=== PATIENT | female | born 1995 | race Caucasian/White ===

== ENCOUNTER 2016-12-19 18:20 | Emergency (ER) | payer OTHER ==
--- NOTE | 2016-12-19 19:27 | RADIOLOGY REPORT ---
HISTORY: Left ankle injury. COMPARISON: None. FINDINGS: Three views of the ankle obtained. There is no acute fracture. There is no lytic or sclerotic lesion. The ankle mortise is intact. Th ere is no soft tissue swelling. No significant degenerative changes are noted. IMPRESSION: No evidence of left ankle fracture or malalignment. Final Electronic Signature: This report was electronically signed by Karl Peck MD on 7 7:25 PM. [email or web address] /
--- NOTE | 2016-12-19 19:55 | ER PHYSICIAN DOCUMENTATION ---
Physician Documentation [facility] Name:Dorcas Duque Age:21 yrs Sex:Female :1995 Arrival Date:12/19/2016 Time:18:20 Bed1 Private MD: Brian Mansfield Disposition: 12/19/16 19:38 Discharged to Home/Self Care. Impression: Metatarsal Fracture. - Condition is Good. - Discharge Instructions: FRACTURE, Foot, CRUTCH WALKING. - Medical Reconciliation form form. - Follow up: Private Physician; When: 1 week; Reason: Recheck today's complaints. - Problem is new. - Symptoms have improved. HPI: 12/19 19:36 This 21 yrs old Female presents to ER via Walk In with complaints of Foot sc Injury - LEFT. 19:36 The patient presents with an injury. The complaints affect the left foot. Context: The sc problem was sustained outdoors, resulted from a mis-step by the patient, Mechanism of Injury: Inversion the patient can partially bear weight, must have assistance. Onset: The symptom(s)/episode began/occurred today. Associated signs and symptoms: The patient has no apparent associated signs or symptoms. Historical: - Allergies: No known drug Allergies; - PMHx: None; - PSHx: tongue clipping; - Tetanus: < 10 years. - Ebola Screening: : Patient denies exposure to infectious person. Patient denies travel to an Ebola-affected area in the 21 days before illness onset. . - Immunization history: Flu Vaccine None. - Social history: Smoking status: Patient states was never smoker of tobacco. Patient/guardian denies using alcohol. - Code Status:: Full code. ROS: 19:37 MS/extremity: Positive for injury or acute deformity, swelling. sc 19:37 Constitutional: Negative for fever, chills, and weight loss. sc Eyes: Negative for injury, pain, redness, and discharge. Neck: Negative for injury, pain, and swelling. Skin: Negative for injury, rash, and discoloration. 19:37 Neuro: Negative for headache, weakness, numbness, tingling, and seizure. Exam: Constitutional: This is a well developed, well nourished patient who is awake, alert, and in no acute distress. Head/Face: Normocephalic, atraumatic. Neck: Trachea midline, no thyromegaly or masses palpated, and no cervical lymphadenopathy. Supple, full range of motion without nuchal rigidity, or vertebral point tenderness. No meningismus. Skin: Warm, dry with normal turgor. Normal color with no rashes, no lesions, and no evidence of cellulitis. 19:37 Neuro: Awake and alert, GCS 15, oriented to person, place, time, and situation. nc Cranial nerves II-XII grossly intact. Motor strength 5/5 in all extremities. Sensory grossly intact. Cerebellar exam normal. Normal gait. 19:37 Musculoskeletal/extremity: Extremities: grossly normal except: decreased ROM, ecchymosis, swelling, tenderness, ROM: intact in all extremities, Circulation is intact in all extremities. Sensation intact. Vital Signs: 18:52 BP 112 / 73; Pulse 91; Resp 14; Temp 99.5; Pulse Ox 97% on R/A; Weight 58.97 kg; Height em1 5 ft. 6 in. (167.64 cm); Pain 0/10; 19:53 BP 121 / 70; Pulse 72; Resp 16; Pulse Ox 94% ; Pain 4/10; lb 18:52 Body Mass Index 20.98 (58.97 kg, 167.64 cm) em1 MDM: 19:02 Patient medically screened. nc 19:38 Differential diagnosis: fracture, sprain. Data reviewed: vital signs, nurses notes, nc radiologic studies, plain films, and as a result, I will discharge patient. Counseling: I had a detailed discussion with the patient and/or guardian regarding: the historical points, exam findings, and any diagnostic results supporting the discharge/admit diagnosis, radiology results, the need for outpatient follow up, for a referral to a specialist. 12/19 19:28 Order name: ANKLE; 3[place] [id number]; Complete Time: 19:39 EDPA 12/19 19:39 Interpretation: Abnormal. nc 12/19 19:25 Order name: ORTHO: Crutches & Training; Complete Time: 19:55 nc 12/19 19:25 Order name: Walking Boot; Complete Time: 19:54 nc 12/19 19:26 Order name: Elevate and Ice Pack; Complete Time: 19:55 nc Dispensed Medications: No medications were administered Signatures: Brian Doll MD MD nc Michelle Crawford
--- NOTE | 2016-12-19 19:55 | ER NURSING DOCUMENTATION ---
Nurse's Notes [facility] Name:Dorcas Duque Age:21 yrs Sex:Female :1995 Arrival Date:12/19/2016 Time:18:20 Bed1 Private MD: Diagnosis:Metatarsal Fracture Presentation: 12/19 18:28 Acuity: GABY 4 rh 18:53 Presenting complaint: Patient states: rolled left ankle while hiking. pain only while lb weight bearing. positive swelling. Transition of care: Camp. Notified ED Physician of Dr. Doll notified. 18:53 Method Of Arrival: Walk In lb 19:02 Care prior to arrival: Medication(s) given: Ibuprofen. lb Triage Assessment: 18:57 General: Appears in no apparent distress, Behavior is appropriate for age, pleasant. lb Pain: Complains of pain in left lateral ankle Pain does not radiate. Pain currently is 0 out of 10 on a pain scale. Aggravated by weight bearing. Neuro: No deficits noted. Cardiovascular: No deficits noted. Respiratory: No deficits noted. GI: No deficits noted. Musculoskeletal: Circulation, motion, and sensation intact Capillary refill < 3 seconds other swelling Swelling present in left lateral ankle. Injury Description: Bruise sustained to left lateral ankle. Historical: - Allergies: No known drug Allergies; - PMHx: None; - PSHx: tongue clipping; - Tetanus: < 10 years. - Ebola Screening: : Patient denies exposure to infectious person. Patient denies travel to an Ebola-affected area in the 21 days before illness onset. . - Immunization history: Flu Vaccine None. - Social history: Smoking status: Patient states was never smoker of tobacco. Patient/guardian denies using alcohol. - Code Status:: Full code. Screenin:02 Infectious Disease Risk None. Abuse screen: Denies threats or abuse. Denies injuries lb from another. Nutritional screening: No deficits noted. Assessment: 19:01 See Triage Assessment done by same RN. General: Appears in no apparent distress, lb Behavior is appropriate for age, pleasant. Pain: Complains of pain in left lateral ankle Pain does not radiate. Pain currently is 0 out of 10 on a pain scale. Aggravated by weight bearing. Neuro: No deficits noted. EENT: No deficits noted. Cardiovascular: No deficits noted. Respiratory: No deficits noted. Vital Signs: 18:52 BP 112 / 73; Pulse 91; Resp 14; Temp 99.5; Pulse Ox 97% on R/A; Weight 58.97 kg; Height em1 5 ft. 6 in. (167.64 cm); Pain 0/10; 19:53 BP 121 / 70; Pulse 72; Resp 16; Pulse Ox 94% ; Pain 4/10; lb 18:52 Body Mass Index 20.98 (58.97 kg, 167.64 cm) em1 ED Course: 18:26 Patient arrived in ED. ama 18:28 Triage completed. 18:53 Michelle Crawford is Primary Nurse. 19:02 Brian Doll MD is Attending Physician. md 19:02 Valuables Remains with patient Patient has correct armband on for positive lb identification. Bed in low position. 19:02 Affected limb iced. 19:53 Crutch training done. Walking boot applied. lb Administered Medications: No medications were administered Outcome: 19:38 Discharge ordered by . md 19:53 Discharged to [facility] 19:53 Condition: good 19:53 Discharge Assessment: Patient awake, alert and oriented x 3. No cognitive and/or functional deficits noted. Patient verbalized understanding of disposition instructions. 19:53 Instructed on crutch walking, discharge instructions, follow up and referral plans. Ortho Care 19:54 Patient left the ED. lb Signatures: Brian Doll MD MD md [facility]ong [facility], [employer] em1 Brett Gillette, Reg Reg Mirtha Urena Michelle Crawford
== END 2016-12-19 19:55 | disposition home or self-care (01) ==
LOC: ER 18:20
DX: S92.302A Fracture of unspecified metatarsal bone(s), left foot, initial encounter for closed fracture (principal); W18.49XA Other slipping, tripping and stumbling without falling, initial encounter; Y92.89 Other specified places as the place of occurrence of the external cause; Y93.01 Activity, walking, marching and hiking
CPT/HCPCS: 99283